=== PATIENT | male | born 1995 | race Caucasian/White ===

== ENCOUNTER 2019-12-16 11:56 | Emergency (ER) | payer OTHER ==
[~2019-12-16] VITALS: Ht 172.7 cm; Wt 122.5 kg
[~2019-12-16 11:56] MED LIST: IBUPROFEN 800800 M1 PO; NORCO 5-325 TA1 EACH PO; PENICILLIN V P500 MG PO
[2019-12-16] MEDS ORDERED: ZANAFLEX4 MG PO (13:43)
[2019-12-16] MEDS ORDERED: IBUPROFEN 800800 M1 PO (13:43)
[2019-12-16 15:34] VITALS: BP 130/72
== END 2019-12-16 15:34 | disposition home or self-care (01) ==
LOC: M.ERS 11:56
DX: S16.1XXA Strain of muscle, fascia and tendon at neck level, initial encounter (principal); S29.012A Strain of muscle and tendon of back wall of thorax, initial encounter; F17.210 Nicotine dependence, cigarettes, uncomplicated; V89.2XXA Person injured in unspecified motor-vehicle accident, traffic, initial encounter; Y93.89 Activity, other specified; Y92.89 Other specified places as the place of occurrence of the external cause; Y99.8 Other external cause status

== ENCOUNTER 2020-10-06 18:42 | Emergency (ER) | payer OTHER ==
[~2020-10-06] VITALS: Ht 172.7 cm; Wt 122.5 kg
[~2020-10-06 18:42] MED LIST changes: +ZANAFLEX4 MG PO
[2020-10-06] MEDS ORDERED: BACTRIM DS TAB1 EACH PO (20:17)
[2020-10-06] MEDS ORDERED: ACETAMINOPHEN-1 EAC2 PO (20:17)
[2020-10-06 20:23] VITALS: BP 152/85
== END 2020-10-06 20:23 | disposition home or self-care (01) ==
LOC: M.ERS 18:42
DX: L05.01 Pilonidal cyst with abscess (principal)

== ENCOUNTER 2020-10-08 21:25 | Emergency (ER) | payer OTHER ==
[~2020-10-08] VITALS: Ht 172.7 cm; Wt 122.5 kg
[~2020-10-08 21:25] MED LIST changes: +ACETAMINOPHEN-1 EAC2 PO; +BACTRIM DS TAB1 EACH PO
[2020-10-08 22:10] VITALS: BP 147/72
== END 2020-10-08 22:10 | disposition home or self-care (01) ==
LOC: M.ERS 21:25
DX: Z48.01 Encounter for change or removal of surgical wound dressing (principal)